=== PATIENT | male | born 1960 | race Two or more races ===

== ENCOUNTER 2022-11-04 05:39 | Emergency (ER) | payer OTHER ==
[~2022-11-04] VITALS: Ht 167.6 cm; Wt 81.6 kg
[2022-11-04 05:45] VITALS: BP 119/73
--- NOTE | 2022-11-04 05:48 | NUR ---
TO BED AMBULATORY
--- NOTE | 2022-11-04 06:07 | NUR ---
Patient being evaluated by physician at bedside.
--- NOTE | 2022-11-04 06:14 | NUR ---
Ultrasound at bedside.
--- NOTE | 2022-11-04 06:16 | NUR ---
PATIENT UNABLE TO URINATE AT THIS TIME
--- NOTE | 2022-11-04 06:24 | NUR ---
LAB AT BEDSIDE
--- NOTE | 2022-11-04 06:42 | NUR ---
PATIENT UNABLE TO URINATE. URINAL PLACED AT BEDSIDE
--- NOTE | 2022-11-04 06:50 | NUR ---
URINE COLLECTED AND WALKED TO LAB
--- NOTE | 2022-11-04 07:00 | NUR ---
RAD AT BEDSIDE
[2022-11-04 07:07] LABS: BASOPHILS % (AUTO) 0.4 % (0.0-2.0); EOSINOPHILS # (AUTO) 0.1 K/uL (0-0.4); EOSINOPHILS % (AUTO) 0.5 % (0.0-4.0); HEMATOCRIT 37.2 % (36-52); HEMOGLOBIN 12.4 g/dL (12.0-18.0); LYMPHOCYTES # (AUTO) 1.7 K/uL (2.0-11.5); MEAN CORPUSCULAR HEMOGLOBIN 28 pg (27-31); MEAN CORPUSCULAR HGB CONC 33 g/dL (33-37); MEAN CORPUSCULAR VOLUME 84.9 fL (80-94); MONOCYTES # (AUTO) 1.1 K/uL (0.8-1.0); MONOCYTES % (AUTO) 8.1 % (1.7-9.3); NEUTROPHILS # (AUTO) 10.9 K/uL (1.8-7.7); PLATELET COUNT (AUTO) 244 K/uL (140-450); RED BLOOD CELL COUNT(AUTO) 4.38 MIL/uL (4.20-6.10); RED CELL DISTRIBUTION WIDTH 13.6 % (11.6-13.7); WHITE BLOOD COUNT (AUTO) 13.7 K/uL (4.8-10.8)
[2022-11-04 07:23] LABS: ALBUMIN 3.2 g/dL (3.4-5.0); ANION GAP 14.3 (8-16); CARBON DIOXIDE 27.6 mmol/L (21-32); CREATININE 0.8 mg/dL (0.6-1.3); POTASSIUM 3.9 mmol/L (3.5-5.1); TOTAL BILIRUBIN 0.4 mg/dL (0.0-1.0)
--- NOTE | 2022-11-04 07:24 | NUR ---
REPORT RECEIVED FROM ENDER CORREA. ASSUMED CARE AT THIS TIME.
--- NOTE | 2022-11-04 07:24 | NUR ---
REPORT GIVEN TO LESTER BUCHANAN. TRANSFER OF CARE.
--- NOTE | 2022-11-04 07:25 | NUR ---
pt at rest w/ hob raised. respirations even and unlabored. pending lab/us results
[2022-11-04 08:22] VITALS: BP 127/70
[2022-11-04] MEDS ORDERED: LEVO-481 PO (09:21)
[2022-11-04] MEDS ORDERED: IBUP-2213 PO (09:24)
[2022-11-04] MEDS ORDERED: KETOROLAC 15 MG/ML VIAL IM ONE (09:25)
--- NOTE | 2022-11-04 09:38 | NUR ---
Patient discharged with v/s stable. Written and verbal after care instructions FOR EPIDIDYMITIS , ORCHITIS AND SCROTAL SWELLING given and explained. Patient alert, oriented and verbalized understanding of instructions. Ambulatory with steady gait. All questions addressed prior to discharge. ID band removed. Patient advised to follow up with PMD. Rx of IBUPROFEN AND LEVOFLOXACIN given. Opportunity to ask questions provided and answered.
--- NOTE | 2022-11-04 09:39 | NUR ---
The patient's care was reviewed and supervised by Gunjan Biggs RN.
[2022-11-04 10:08] LABS: APPEARANCE,URINE HAZY (CLEAR); BILIRUBIN,URINE NEGATIVE (NEGATIVE); BLOOD, URINE 2+ (NEGATIVE); COLOR,URINE YELLOW (YELLOW); LEUKOCYTE ESTERASE ,URINE NEGATIVE (NEGATIVE); NITRITE, URINE NEGATIVE (NEGATIVE); PH,URINE 5.5 (5.0-9.0); UGLUCOSE NEGATIVE (NEGATIVE)
[2022-11-04 10:24] LABS: WBC,URINE 0-5 /HPF (0-5)
== END 2022-11-04 09:38 | disposition home or self-care (01) ==
LOC: MED 05:39
DX: N45.3 Epididymo-orchitis (principal); Z79.899 Other long term (current) drug therapy
CPT/HCPCS: 36415; 71045; 76870; 80053; 81001; 83880; 84484; 85025; 87086; 87491; 96372; 99285; J1885; Q0092

== ENCOUNTER 2023-07-24 06:20 | Emergency (ER) | payer OTHER ==
[~2023-07-24] VITALS: Ht 157.5 cm; Wt 83.9 kg
[~2023-07-24 06:20] MED LIST: IBUP-2213 PO; LEVO-481 PO
[2023-07-24 06:28] VITALS: BP 150/99; PULSE 102; RESP 18; TEMP 97.4; O2SAT 99
[2023-07-24 08:44] LABS: APPEARANCE,URINE CLEAR (CLEAR); BILIRUBIN,URINE NEGATIVE (NEGATIVE); BLOOD, URINE 3+ (NEGATIVE); COLOR,URINE YELLOW (YELLOW); LEUKOCYTE ESTERASE ,URINE NEGATIVE (NEGATIVE); NITRITE, URINE NEGATIVE (NEGATIVE); PH,URINE 5.5 (5.0-9.0); PROTEIN,URINE 1+ (NEGATIVE); UGLUCOSE NEGATIVE (NEGATIVE); UROBILINOGEN,URINE 0.2 EU/dL (0.2 - 1)
[2023-07-24 09:13] LABS: RBC,URINE 11-20 (MOD) /HPF (0-5)
[2023-07-24 09:15] LABS: BACTERIA,URINE 1+ /HPF (None Seen); SQUAMOUS EPITHELIAL CELL,UR 4-10 (MOD) /LPF (0-3 (FEW))
[2023-07-24] MEDS ORDERED: KETOROLAC 30 MG/ML VIAL IM ONE (10:20)
[2023-07-24] MEDS ORDERED: LEVO-481 PO (11:46)
[2023-07-24] MEDS ORDERED: IBUP-2213 PO (11:46)
[2023-07-24] MEDS ORDERED: levoFLOXacin 500 MG TAB PO ONE (11:50)
[2023-07-24 12:30] VITALS: BP 142/81; PULSE 81; RESP 16; TEMP 98.5; O2SAT 97
[2023-07-25] MEDS ORDERED: DOXY-690 PO (10:43)
== END 2023-07-24 12:28 | disposition home or self-care (01) ==
LOC: MED 06:20
DX: N45.1 Epididymitis (principal); N43.3 Hydrocele, unspecified; J44.9 Chronic obstructive pulmonary disease, unspecified; E78.5 Hyperlipidemia, unspecified; F15.90 Other stimulant use, unspecified, uncomplicated; F11.90 Opioid use, unspecified, uncomplicated; Z90.49 Acquired absence of other specified parts of digestive tract; Z79.1 Long term (current) use of non-steroidal anti-inflammatories (NSAID); Z79.2 Long term (current) use of antibiotics
CPT/HCPCS: 76870; 81001; 87086; 87491; 96372; 99285; J1885; Q0092

== ENCOUNTER 2024-02-21 04:37 | Emergency (ER) | payer SELFPAY ==
[~2024-02-21] VITALS: Ht 170.2 cm; Wt 95.3 kg
[~2024-02-21 04:37] MED LIST changes: +DOXY-690 PO
[2024-02-21 04:40] VITALS: BP 150/97; PULSE 104; RESP 17; TEMP 97.8; O2SAT 97
[2024-02-21 05:05] VITALS: BP 150/97; PULSE 104; RESP 17; TEMP 97.8; O2SAT 97
[2024-02-21] MEDS ORDERED: BACI-418 TP (05:17)
[2024-02-21] MEDS ORDERED: CLIN300C52 PO (05:17)
== END 2024-02-21 05:24 | disposition home or self-care (01) ==
LOC: MED 04:37
DX: T25.122A Burn of first degree of left foot, initial encounter (principal); Z79.899 Other long term (current) drug therapy; X10.2XXA Contact with fats and cooking oils, initial encounter; Y93.89 Activity, other specified; Y92.89 Other specified places as the place of occurrence of the external cause; Y99.8 Other external cause status
CPT/HCPCS: 16000; 99283